=== PATIENT | male | born 1970 | race Two or more races ===

== ENCOUNTER 2018-07-21 20:58 | Emergency (ER) | payer OTHER ==
[~2018-07-21] VITALS: Ht 175.3 cm; Wt 86.2 kg
[2018-07-21 21:10] VITALS: BP 151/97
[2018-07-21] MEDS ORDERED: cloNIDine HCL 0.1 MG TAB PO ONE (21:45)
== END 2018-07-21 22:41 ==
LOC: ER 21:05
DX: I10 Essential (primary) hypertension (principal); Z02.89 Encounter for other administrative examinations